=== PATIENT | female | born 1985 | race Caucasian/White ===

== ENCOUNTER 2017-11-18 16:56 | Inpatient (IN) | payer OTHER ==
[2017-11-18 17:56] LABS: BASO % 0.8 % (0.0-1.0); EOS # 0.1 10^3/uL (0.0-0.50); EOS % 1.1 % (0.0-3.0); HEMATOCRIT 27.9 % (36.0-47.0); HEMOGLOBIN 8.7 g/dl (12.0-16.0); IMMATURE GRANULOCYTE % 0.2 % (0-0); LYMPH # 1.7 10^3/uL (1.5-4.5); LYMPH % 31.4 % (24.0-44.0); MEAN CORPUSCULAR HEMOGLOBIN 25.6 pg (27.0-33.0); MEAN CORPUSCULAR HGB CONC 31.2 g/dl (32.0-36.5); MEAN CORPUSCULAR VOLUME 82.1 fl (80.0-96.0); MONO # 0.2 10^3/uL (0.0-0.8); MONO % 3.4 % (0.0-5.0); NEUTROPHILS # 3.3 10^3/uL (1.8-7.7); NEUTROPHILS % 63.1 % (36.0-66.0); PLATELET COUNT, AUTOMATED 402 10^3/uL (150-450); RED CELL DISTRIBUTION WIDTH 14.6 % (11.5-14.5); WHITE BLOOD COUNT 5.3 10^3/uL (4.0-10.0)
[2017-11-18 18:16] LABS: ANION GAP 10 MEQ/L (8-16); BLOOD UREA NITROGEN 11 MG/DL (7-18); CALCIUM LEVEL 8.2 MG/DL (8.5-10.1); CARBON DIOXIDE LEVEL 23 MEQ/L (21-32); CHLORIDE LEVEL 112 MEQ/L (98-107); CREATININE FOR GFR 1.12 MG/DL (0.55-1.02); GLOMERULAR FILTRATION RATE 59.6 (>60); GLUCOSE, FASTING 164 MG/DL (70-100); POTASSIUM SERUM 4.1 MEQ/L (3.5-5.1); SODIUM LEVEL 145 MEQ/L (136-145)
[2017-11-18] MEDS ORDERED: traZODone 50 MG TAB PO (20:30)
[2017-11-18] MEDS ORDERED: MAALOX 30 ML SUSP *UDC PO (20:30)
[2017-11-18] MEDS ORDERED: OLANZapine ORAL DISINTEGRATING TAB 5MG PO (20:30)
[2017-11-18] MEDS ORDERED: MOM 30ML SUSPENSION UDC PO (20:30)
[2017-11-18] MEDS ORDERED: DIVALPROEX 500MG *ER* TAB PO (21:00)
[2017-11-18] MEDS ORDERED: ARIPiprazole 10 MG TAB PO (21:00)
[2017-11-18] MEDS: DIVALPROEX 500MG *ER* TAB PO (22:26)
[2017-11-18] MEDS: NICOTINE 21MG/24HR 1 EA TRANSDERMAL TD (22:27)
[2017-11-18] MEDS ORDERED: ALBUTEROL 90 MCG/ACT 8GM HFA INHALER INH (22:30)
[2017-11-18] MEDS: AUGMENTIN 875 MG TAB PO (22:53)
[2017-11-18] MEDS: SUCRALFATE 1 GM TAB PO (22:53)
[2017-11-18] MEDS: QUEtiapine FUMARATE 50 MG TAB PO (22:54)
[2017-11-19] MEDS: SUCRALFATE 1 GM TAB PO ×4 (06:45→21:40)
[2017-11-19] MEDS: NICOTINE 21MG/24HR 1 EA TRANSDERMAL TD (09:22)
[2017-11-19] MEDS: CYANOCOBALAMIN 500 MCG TAB PO ×3 (09:22→21:40)
[2017-11-19] MEDS: DIVALPROEX 500MG *ER* TAB PO (09:22)
[2017-11-19] MEDS: THIAMINE 100 MG TAB PO (09:23)
[2017-11-19] MEDS: AUGMENTIN 875 MG TAB PO ×2 (09:23→21:40)
[2017-11-19] MEDS: FOLIC ACID 1 MG TAB PO (09:23)
[2017-11-19] MEDS: OMEPRAZOLE 20 MG CAP PO (09:23)
[2017-11-19] MEDS: ONDANSETRON 4 MG TAB (S0181) PO (16:40)
[2017-11-19] MEDS: QUEtiapine FUMARATE 50 MG TAB PO (21:39)
[2017-11-19] MEDS: DIVALPROEX 250MG *ER* TAB PO (21:39)
[2017-11-20] MEDS: SUCRALFATE 1 GM TAB PO ×4 (06:48→21:00)
[2017-11-20 08:12] LABS: BASO # 0.1 10^3/uL (0.0-0.2); BASO % 1.5 % (0.0-1.0); EOS # 0.1 10^3/uL (0.0-0.50); EOS % 1.5 % (0.0-3.0); HEMATOCRIT 33.7 % (36.0-47.0); HEMOGLOBIN 10.2 g/dl (12.0-16.0); IMMATURE GRANULOCYTE % 0.2 % (0-0); LYMPH # 1.4 10^3/uL (1.5-4.5); LYMPH % 30.7 % (24.0-44.0); MEAN CORPUSCULAR HEMOGLOBIN 24.9 pg (27.0-33.0); MEAN CORPUSCULAR HGB CONC 30.3 g/dl (32.0-36.5); MEAN CORPUSCULAR VOLUME 82.2 fl (80.0-96.0); MONO # 0.2 10^3/uL (0.0-0.8); MONO % 5.2 % (0.0-5.0); NEUTROPHILS # 2.8 10^3/uL (1.8-7.7); NEUTROPHILS % 60.9 % (36.0-66.0); PLATELET COUNT, AUTOMATED 488 10^3/uL (150-450); RED CELL DISTRIBUTION WIDTH 14.4 % (11.5-14.5); WHITE BLOOD COUNT 4.6 10^3/uL (4.0-10.0)
[2017-11-20] MEDS: OMEPRAZOLE 20 MG CAP PO (08:34)
[2017-11-20] MEDS: FOLIC ACID 1 MG TAB PO (08:34)
[2017-11-20] MEDS: NICOTINE 21MG/24HR 1 EA TRANSDERMAL TD (08:34)
[2017-11-20] MEDS: AUGMENTIN 875 MG TAB PO ×2 (08:34→21:00)
[2017-11-20] MEDS: DIVALPROEX 250MG *ER* TAB PO ×2 (08:34→21:00)
[2017-11-20] MEDS: CYANOCOBALAMIN 500 MCG TAB PO ×3 (08:34→21:00)
[2017-11-20] MEDS: THIAMINE 100 MG TAB PO (08:34)
[2017-11-20] MEDS: INFLUENZA QUADRIVALENT PF VACCINE 0.5ML SYRINGE (90686) IM (08:34)
[2017-11-20 08:36] LABS: ALBUMIN 2.9 GM/DL (3.2-5.2); ALBUMIN/GLOBULIN RATIO 0.74 (1.00-1.93); ALKALINE PHOSPHATASE 70 U/L (45-117); ALT/SGPT 12 U/L (12-78); ANION GAP 8 MEQ/L (8-16); AST/SGOT 14 U/L (7-37); BILIRUBIN,TOTAL 0.3 MG/DL (0.2-1.0); BLOOD UREA NITROGEN 9 MG/DL (7-18); CALCIUM LEVEL 9.1 MG/DL (8.5-10.1); CARBON DIOXIDE LEVEL 27 MEQ/L (21-32); CHLORIDE LEVEL 107 MEQ/L (98-107); GLOMERULAR FILTRATION RATE > 60.0 (>60); GLUCOSE, FASTING 133 MG/DL (70-100); POTASSIUM SERUM 4.7 MEQ/L (3.5-5.1); SODIUM LEVEL 142 MEQ/L (136-145); TOTAL PROTEIN 6.8 GM/DL (6.4-8.2)
[2017-11-20 08:39] LABS: FERRITIN 17 NG/ML (8-252); IRON (FE) 22 UG/DL (50-170); PERCENT SATURATION 5.7 % (13.2-45.0); TOTAL IRON BINDING CAPACITY 388 UG/DL (250-450)
[2017-11-20 09:29] LABS: ESTIMATED AVERAGE GLUCOSE 120 MG/DL (60-110); HEMOGLOBIN A1c 5.8 %
[2017-11-20 09:52] LABS: VITAMIN B12 LEVEL 1531 PG/ML (247-911)
[2017-11-20 09:58] LABS: FOLATE 19.1 NG/ML (>5.4)
[2017-11-20] MEDS: IBUPROFEN 600 MG TAB PO (12:37)
[2017-11-20] MEDS: GABAPENTIN 300 MG CAP PO ×2 (15:41→21:00)
[2017-11-20] MEDS: cloNIDine 0.1 MG TAB PO (15:43)
[2017-11-20] MEDS: QUEtiapine FUMARATE 50 MG TAB PO (21:00)
[2017-11-21] MEDS: SUCRALFATE 1 GM TAB PO ×2 (06:49→12:30)
[2017-11-21 07:17] LABS: BASO # 0.1 10^3/uL (0.0-0.2); BASO % 1.5 % (0.0-1.0); EOS # 0.1 10^3/uL (0.0-0.50); EOS % 1.9 % (0.0-3.0); HEMATOCRIT 32.4 % (36.0-47.0); HEMOGLOBIN 10.1 g/dl (12.0-16.0); IMMATURE GRANULOCYTE % 0.2 % (0-0); LYMPH # 1.7 10^3/uL (1.5-4.5); LYMPH % 36.6 % (24.0-44.0); MEAN CORPUSCULAR HGB CONC 31.2 g/dl (32.0-36.5); MEAN CORPUSCULAR VOLUME 80.2 fl (80.0-96.0); MONO # 0.3 10^3/uL (0.0-0.8); MONO % 7.1 % (0.0-5.0); NEUTROPHILS # 2.4 10^3/uL (1.8-7.7); NEUTROPHILS % 52.7 % (36.0-66.0); PLATELET COUNT, AUTOMATED 514 10^3/uL (150-450); RED BLOOD COUNT 4.04 10^6/uL (4.00-5.40); RED CELL DISTRIBUTION WIDTH 14.4 % (11.5-14.5); WHITE BLOOD COUNT 4.6 10^3/uL (4.0-10.0)
[2017-11-21 07:40] LABS: ALBUMIN 2.8 GM/DL (3.2-5.2); ALBUMIN/GLOBULIN RATIO 0.74 (1.00-1.93); ALKALINE PHOSPHATASE 61 U/L (45-117); ALT/SGPT 12 U/L (12-78); ANION GAP 7 MEQ/L (8-16); AST/SGOT 14 U/L (7-37); BILIRUBIN,TOTAL 0.3 MG/DL (0.2-1.0); BLOOD UREA NITROGEN 11 MG/DL (7-18); CARBON DIOXIDE LEVEL 29 MEQ/L (21-32); CHLORIDE LEVEL 106 MEQ/L (98-107); CREATININE FOR GFR 1.06 MG/DL (0.55-1.30); GLOMERULAR FILTRATION RATE > 60.0 (>60); GLUCOSE, FASTING 91 MG/DL (70-100); SODIUM LEVEL 142 MEQ/L (136-145); TOTAL PROTEIN 6.6 GM/DL (6.4-8.2)
[2017-11-21] MEDS: FOLIC ACID 1 MG TAB PO (08:19)
[2017-11-21] MEDS: CYANOCOBALAMIN 500 MCG TAB PO (08:19)
[2017-11-21] MEDS: OMEPRAZOLE 20 MG CAP PO (08:19)
[2017-11-21] MEDS: THIAMINE 100 MG TAB PO (08:19)
[2017-11-21] MEDS: DIVALPROEX 250MG *ER* TAB PO (08:19)
[2017-11-21] MEDS: cloNIDine 0.1 MG TAB PO (08:19)
[2017-11-21] MEDS: AUGMENTIN 875 MG TAB PO (08:19)
[2017-11-21] MEDS: GABAPENTIN 300 MG CAP PO (08:19)
[2017-11-21] MEDS: NICOTINE 21MG/24HR 1 EA TRANSDERMAL TD (08:20)
== END 2017-11-21 12:42 | disposition home or self-care (01) | DRG 753 ==
LOC: M ED 16:56 → M PSY 21:15
DX: F31.9 Bipolar disorder, unspecified (principal); E53.8 Deficiency of other specified B group vitamins; K31.84 Gastroparesis; F14.90 Cocaine use, unspecified, uncomplicated; F11.90 Opioid use, unspecified, uncomplicated; F13.90 Sedative, hypnotic, or anxiolytic use, unspecified, uncomplicated; Z79.899 Other long term (current) drug therapy; Z88.6 Allergy status to analgesic agent; Z88.8 Allergy status to other drugs, medicaments and biological substances; K21.9 Gastro-esophageal reflux disease without esophagitis; J45.909 Unspecified asthma, uncomplicated; D64.9 Anemia, unspecified